=== PATIENT | male | born 1995 | race African-American/Black ===

== ENCOUNTER 2018-09-22 10:07 | Emergency (ER) | payer MEDICAID ==
[~2018-09-22] VITALS: Ht 193 cm; Wt 74.7 kg
[2018-09-22 10:27] VITALS: BP 113/91
--- NOTE | 2018-09-22 11:02 | NUR ---
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
--- NOTE | 2018-09-22 11:10 | NUR ---
APPEARS TO HAVE FLIGHT OF IDEAS AND IS ANXIOUS WANTS BP CHECK BECAUSE HE FEELS IT IS TO HIGH REPORTS HEARIGN VOICES, NOT EATING AND CAN NOT SLEEP DENIES ANY HI OR SI FRIEND AT THE BS
[2018-09-22 11:40] LABS: BASOPHILS # (AUTO) 0.02 x10^3/uL (0-0.3); BASOPHILS % (AUTO) 0 % (0-1); EOSINOPHILS # (AUTO) 0.17 x10^3/uL (0-0.8); EOSINOPHILS % (AUTO) 3 % (1-7); LYMPHOCYTES # (AUTO) 2.03 x10^3/uL (1-6.1); LYMPHOCYTES % (AUTO) 32 % (22-44); MD NO; MEAN CORPUSCULAR HEMOGLOBIN 31.8 pg (27.5-34.5); MEAN CORPUSCULAR VOLUME 93.5 fL (81-97); MONOCYTES % (AUTO) 8 % (2-9); NEUTROPHILS # (AUTO) 3.58 x10^3/uL (1.8-8.0); NEUTROPHILS % (AUTO) 57 % (42-75); PLATELET COUNT 276 x10^3/uL (130-400); RED BLOOD COUNT 4.89 x10^6/uL (4.38-5.82); RED CELL DISTRIBUTION WIDTH 12.9 % (9.4-14.8)
[2018-09-22 11:51] LABS: ALANINE AMINOTRANSFERASE 20 U/L (12-78); ALBUMIN 4.2 g/dL (3.4-5.0); ANION GAP 6 mmol/L (5-15); CALCIUM 8.6 mg/dL (8.5-10.1); CHLORIDE 107 mmol/L (98-107); CREATININE 0.68 mg/dL (0.7-1.3); SALICYLATE LEVEL 2.6 mg/dL (2.8-20.0)
[2018-09-22 11:53] LABS: ACETAMINOPHEN < 2 mcg/mL (10-30); ALKALINE PHOSPHATASE 113 U/L (45-117); BILIRUBIN,TOTAL 0.2 mg/dL (0.2-1.0); TOTAL PROTEIN 8.1 g/dL (6.4-8.2)
--- NOTE | 2018-09-22 12:16 | NUR ---
RESTING AT THIS TIME BRAD FRIEND AT THE BS
[2018-09-22 12:32] LABS: MICROSCOPIC NOT IND
[2018-09-22 12:33] LABS: CULTURE INDICATED? NO
[2018-09-22 12:43] LABS: AMPHETAMINE SCREEN, URINE Negative (Negative); BARBITURATE SCREEN, URINE Negative (Negative); BENZODIAZEPINE SCREEN, URINE Negative (Negative); CANNABINOID SCREEN, URINE Positive (Negative); COCAINE SCREEN, URINE Negative (Negative); METHADONE SCREEN, URINE Negative (Negative); OPIATE SCREEN, URINE Negative (Negative)
== END 2018-09-22 12:57 | disposition home or self-care (01) ==
LOC: EDBD 10:07 → ED 12:51
DX: R44.0 Auditory hallucinations (principal)
CPT/HCPCS: 36415; 80053; 80307; 80329; 81003; 85025; 99284; G0480